=== PATIENT | female | born 1995 | race Caucasian/White ===

== ENCOUNTER 2019-02-10 14:18 | Emergency (ER) | payer SELFPAY ==
[~2019-02-10] VITALS: Ht 162.6 cm; Wt 60.0 kg
[2019-02-10] MEDS ORDERED: SODIUM CHLORIDE 0.9% 1,000 ML IV ONE (15:02)
[2019-02-10 15:25] LABS: BASOPHILS % 0.5 % (0.0-2.0); CHLORIDE 112 mEq/L (98-107); EOSINOPHILS % 1.4 % (0.0-5.0); HEMOGLOBIN. 12.1 g/dL (12.0-16.0); LYMPHOCYTES % 30.9 % (20.0-50.0); MEAN CORPUSCULAR HEMOGLOBIN 30.2 pg (28.0-32.0); MEAN CORPUSCULAR VOLUME 89.8 fL (81.0-99.0); MEAN PLATELET VOLUME 7.1 fl (7.4-10.4); MONOCYTES % 12.1 % (2.0-8.0); NEUTROPHILS % 55.1 % (40.0-76.0); PLATELET 214 x1000/uL (130-400); RED BLOOD CELL COUNT 4.01 mill/uL (4.2-5.4); RED CELL DISTRIBUTION WIDTH 13.3 % (11.6-14.6)
[2019-02-10 15:49] LABS: CLARITY URINE CLEAR (CLEAR); COLOR URINE ORANGE (YELLOW); KETONES URINE NEGATIVE (NEGATIVE); LEUKOCYTE ESTERASE URINE NEGATIVE (NEGATIVE); NITRITE URINE NEGATIVE (NEGATIVE); OCCULT BLOOD URINE 3+ (NEGATIVE); PH URINE 5.5 (4.5-8.0); PROTEIN URINE TRACE (NEGATIVE); SPECIFIC GRAVITY URINE 1.025 (1.005-1.030); UROBILINOGEN URINE 0.2 E.U./dL (0.2-1.0)
[2019-02-10 17:19] VITALS: BP 97/60
== END 2019-02-10 17:22 | disposition home or self-care (01) ==
LOC: ER 14:28
DX: R55 Syncope and collapse (principal); E16.2 Hypoglycemia, unspecified; F32.9 Major depressive disorder, single episode, unspecified; F43.10 Post-traumatic stress disorder, unspecified
CPT/HCPCS: 36415; 80053; 81003; 81025; 85025; 93005; 96360; 99284; J7030

== ENCOUNTER 2024-09-13 19:12 | Emergency (ER) | payer SELFPAY ==
[~2024-09-13] VITALS: Ht 167.6 cm; Wt 72.0 kg
[2024-09-13 19:14] VITALS: O2SAT 98
[2024-09-13 19:15] VITALS: TEMP 36.89184
[2024-09-13 19:30] LABS: BASOPHILS % 0.5 % (0.0-2.0); EOSINOPHILS % 0.7 % (0.0-5.0); HEMATOCRIT. 41.5 % (36.0-48.0); HEMOGLOBIN. 14.2 g/dL (12.0-16.0); LYMPHOCYTES % 26.2 % (20.0-50.0); MEAN CORPUSCULAR HEMOGLOBIN 29.9 pg (28.0-32.0); MEAN CORPUSCULAR HGB CONC 34.2 g/dL (31.0-37.0); MEAN CORPUSCULAR VOLUME 87.5 fL (81.0-99.0); MEAN PLATELET VOLUME 6.7 fl (7.4-10.4); MONOCYTES % 7.8 % (2.0-8.0); NEUTROPHILS % 64.8 % (40.0-76.0); PLATELET 286 x1000/uL (130-400); RED BLOOD CELL COUNT 4.74 mill/uL (4.2-5.4); RED CELL DISTRIBUTION WIDTH 13.1 % (11.6-14.6); WHITE BLOOD COUNT 12.1 x1000/uL (4.5-11.0)
[2024-09-13 19:37] LABS: CHLORIDE 105 mEq/L (98-107); POTASSIUM 3.6 mEq/L (3.5-5.1); SODIUM 138 mEq/L (136-145)
[2024-09-13 19:38] LABS: CALCIUM 10.1 mg/dL (8.7-10.4); CARBON DIOXIDE 20 mEq/L (21-32)
[2024-09-13 19:41] LABS: HCG SCREEN NEGATIVE
[2024-09-13 19:43] LABS: CREATININE 0.7 mg/dL (0.6-1.0); GLUCOSE 123 mg/dL (70-105); UREA NITROGEN BLOOD 11 mg/dL (9-23)
[2024-09-13 19:45] LABS: ETHANOL BLOOD < 10 mg/dL (<10); TROPONIN I HIGH SENSITIVITY < 4 ng/L (3.0-34)
[2024-09-13] MEDS: LORAZEPAM 2MG/ML INJ IV ONE (19:54)
[2024-09-13] MEDS: ONDANSETRON HCL 4MG/2ML INJ IV ONE (19:54)
[2024-09-13] MEDS: DIPHENHYDRAMINE 50MG/ML VIAL IV ONE (19:54)
[2024-09-13] MEDS: SODIUM CHLORIDE 0.9% 1,000 ML IV ONE (19:58)
[2024-09-13 21:27] VITALS: BP 112/63; PULSE 76; RESP 15; O2SAT 98
== END 2024-09-13 21:27 | disposition home or self-care (01) ==
LOC: ER 19:12
DX: F41.9 Anxiety disorder, unspecified (principal); F17.200 Nicotine dependence, unspecified, uncomplicated; F12.10 Cannabis abuse, uncomplicated; I49.9 Cardiac arrhythmia, unspecified
CPT/HCPCS: 80048; 80320; 84703; 85025; 84484; 36415; 71045; 93005; 96361; 96374; 96375; 99285; J1200; J2060; J2405; J7030; G0480